=== PATIENT | female | born 1945 | race Caucasian/White ===

== ENCOUNTER 2018-05-09 11:24 | Inpatient (IN) | payer MEDICARE, OTHER ==
[~2018-05-09] VITALS: Ht 165.1 cm; Wt 107.3 kg
[~2018-05-09 11:24] MED LIST: CARI-1 PO; CHOL2000 PO; CITA40TA11 PO; CYAN100087 PO; LOVA20TA2 PO; METO-395 PO; METO50TA7 PO; MONT10TA24 PO; PANT-47 PO; TRAM50TA2 PO
[2018-05-09] MEDS ORDERED: normal saline 1000ML IV soln IVB ONE (11:40)
[2018-05-09] MEDS ORDERED: ondansetron/PF 4mg/2ml inj IV ONE (11:40)
[2018-05-09 11:59] LABS: BASOPHILS % (AUTO) 0.1 % (0-1); EOSINOPHILS # (AUTO) 0.1 X10'3 (0-0.9); EOSINOPHILS % (AUTO) 0.8 % (0-6); HEMATOCRIT 41.9 % (35.0-45.0); HEMOGLOBIN 13.8 g/dl (12.0-16.0); LYMPHOCYTES # (AUTO) 0.6 X10'3 (1.1-4.8); LYMPHOCYTES % (AUTO) 4.3 % (21-51); MEAN CORPUSCULAR HEMOGLOBIN 28.9 PG (27.0-31.0); MEAN CORPUSCULAR HGB CONC 32.9 % (33.0-36.5); MEAN CORPUSCULAR VOLUME 87.9 FL (78-98); MEAN PLATELET VOLUME 9.2 FL (7.4-10.4); MONOCYTES # (AUTO) 0.4 X10'3 (0-0.9); MONOCYTES % (AUTO) 2.9 % (2-12); NEUTROPHILS # (AUTO) 11.9 X10'3 (1.8-7.7); NEUTROPHILS % (AUTO) 91.9 % (42-75); PLATELET COUNT 244 X10'3 (140-440); RED BLOOD COUNT 4.77 X10'6 (4.20-5.60); RED CELL DISTRIBUTION WIDTH 14.5 % (11.5-14.5); WHITE BLOOD COUNT 12.9 X10'3 (4.5-11.0)
[2018-05-09] MEDS: morphine 4 MG/ML inj SYRINge IV PRN ×2 (12:01→13:20)
[2018-05-09 12:14] LABS: ALANINE AMINOTRANSFERASE 27 U/L (12-78); ALBUMIN 3.4 G/DL (3.4-5.0); ALBUMIN/GLOBULIN RATIO 0.9 (1.1-1.5); ALKALINE PHOSPHATASE 98 IU/L (46-116); ANION GAP 10 (8-16); ASPARTATE AMINO TRANSFERASE 23 U/L (10-37); BILIRUBIN,TOTAL 0.5 MG/DL (0.1-1.0); BLOOD UREA NITROGEN 12 MG/DL (7-18); CALCIUM 8.5 MG/DL (8.5-10.1); CHLORIDE 104 MMOL/L (99-107); GLUCOSE 119 MG/DL (70-104); POTASSIUM 3.7 MMOL/L (3.5-5.1); PROTHROMBIN TIME 10.3 SECONDS (9.0-12.0); SODIUM 141 MMOL/L (135-145); TOTAL CARBON DIOXIDE 27.2 MMOL/L (24-32); TOTAL PROTEIN 7.1 G/DL (6.4-8.2); eGFR 71 ML/MIN
[2018-05-09 12:35] LABS: CLARITY,URINE CLEAR (Clear); COLOR,URINE STRAW (Yellow); GLUCOSE, URINE NEGATIVE (Neg); KETONES,URINE NEGATIVE (Neg); LEUKOCYTE ESTERASE ,URINE NEGATIVE (Neg); NITRITES, URINE NEGATIVE (Neg); OCCULT BLOOD,URINE MODERATE (Neg); PROTEIN,URINE NEGATIVE (Neg); UROBILINOGEN,URINE 0.2 E.U/dL (0.2-1.0)
[2018-05-09 12:36] LABS: UA COLLECTION TYPE STRAIGHT CATH
[2018-05-09 12:41] LABS: BACTERIA,URINE FEW /HPF (Neg); HYALINE CASTS 0-3 /LPF (NEGATIVE); SQUAMOUS EPITHELIAL CELL,UR FEW /LPF (FEW)
[2018-05-09 12:42] LABS: WBC,URINE 0-4 /HPF (0-4)
[2018-05-09 12:57] LABS: TOTAL CELLS COUNTED 100
[2018-05-09 12:58] LABS: PLATELET ESTIMATE NORMAL
[2018-05-09] MEDS ORDERED: POTA20TA19 PO (13:16)
[2018-05-09] MEDS ORDERED: SYN0.088T PO (13:23)
[2018-05-09] MEDS ORDERED: VIT1CAPS46 PO (13:23)
[2018-05-09] MEDS ORDERED: HYDROmorphone 1 mg/ml syringe IV PRN ×2 (15:05)
[2018-05-09] MEDS ORDERED: potassium Cl 40MEQ/NS 500ml 500 ML IV PRN ×2 (15:05)
[2018-05-09] MEDS ORDERED: magnesium hydroxide 30ml (MOM) UD suspension PO PRN (15:05)
[2018-05-09] MEDS ORDERED: potassium Cl 20 mEq SR tablet PO PRN ×2 (15:05)
[2018-05-09] MEDS ORDERED: mag hydrox/Alum hydrox/simeth 30ml oral suspension PO PRN (15:05)
[2018-05-09] MEDS ORDERED: morphine 2 MG/ML inj. syringe IV PRN (15:05)
[2018-05-09] MEDS ORDERED: magnesium 1gm/100ml D5W IVPB 100 ML IV PRN (15:05)
[2018-05-09] MEDS: K and/or MAG REPLACEMENT MC SCH (15:05)
[2018-05-09] MEDS ORDERED: diphenhydrAMINE 25mg capsule PO PRN (15:05)
[2018-05-09] MEDS ORDERED: diphenhydrAMINE 50 mg/ml inj IV PRN (15:05)
[2018-05-09] MEDS ORDERED: magnesium 4gm in 100ml NS 100 ML IV PRN (15:05)
[2018-05-09] MEDS ORDERED: magnesium Cl slow-release 64mg tablet PO PRN (15:05)
[2018-05-09] MEDS ORDERED: metroNIDAZOLE-Flagyl 500mg/NS 100 ML IV STA (15:11)
[2018-05-09] MEDS ORDERED: levoFLOXACIN-Levaquin 750MG/D5 150 ML IV STA (15:11)
[2018-05-09] MEDS: pantoprazole 40 MG vial IV SCH (15:51)
[2018-05-09] MEDS: metroNIDAZOLE-Flagyl 500mg/NS 100 ML IV SCH ×2 (16:00→23:23)
[2018-05-09 16:30] VITALS: BP 95/55
[2018-05-09] MEDS: dextrose 5%-normal saline 1,000 ML IV SCH ×2 (16:35→23:29)
[2018-05-09] MEDS: metoprolol succinate 25mg (24-HOUR) SR. Tablet PO SCH (19:37)
[2018-05-09 20:05] VITALS: BP 94/54
[2018-05-10] VITALS (18 sets, daily range): BP systolic 80–133; BP diastolic 39–68
[2018-05-10] MEDS: ondansetron/PF 4mg/2ml inj IV PRN (00:33)
[2018-05-10] MEDS: morphine 2 MG/ML inj. syringe IV PRN ×2 (04:16→08:18)
[2018-05-10 05:37] LABS: BASOPHILS % (AUTO) 0.2 % (0-1); EOSINOPHILS # (AUTO) 0.1 X10'3 (0-0.9); EOSINOPHILS % (AUTO) 0.5 % (0-6); HEMATOCRIT 35.9 % (35.0-45.0); HEMOGLOBIN 11.8 g/dl (12.0-16.0); LYMPHOCYTES # (AUTO) 1.1 X10'3 (1.1-4.8); LYMPHOCYTES % (AUTO) 7.5 % (21-51); MEAN CORPUSCULAR HEMOGLOBIN 29.1 PG (27.0-31.0); MEAN CORPUSCULAR HGB CONC 32.9 % (33.0-36.5); MEAN CORPUSCULAR VOLUME 88.3 FL (78-98); MEAN PLATELET VOLUME 9.7 FL (7.4-10.4); MONOCYTES # (AUTO) 0.9 X10'3 (0-0.9); MONOCYTES % (AUTO) 5.8 % (2-12); PLATELET COUNT 186 X10'3 (140-440); RED BLOOD COUNT 4.07 X10'6 (4.20-5.60); RED CELL DISTRIBUTION WIDTH 14.7 % (11.5-14.5); WHITE BLOOD COUNT 15.1 X10'3 (4.5-11.0)
[2018-05-10 05:55] LABS: ALANINE AMINOTRANSFERASE 19 U/L (12-78); ALBUMIN 2.6 G/DL (3.4-5.0); ALBUMIN/GLOBULIN RATIO 0.7 (1.1-1.5); ALKALINE PHOSPHATASE 73 IU/L (46-116); ANION GAP 9 (8-16); ASPARTATE AMINO TRANSFERASE 15 U/L (10-37); BILIRUBIN,TOTAL 0.5 MG/DL (0.1-1.0); BLOOD UREA NITROGEN 10 MG/DL (7-18); BUN/CREATININE RATIO 12.2 (6.6-38.0); CHLORIDE 107 MMOL/L (99-107); CREATININE 0.82 MG/DL (0.40-0.90); GLUCOSE 130 MG/DL (70-104); MAGNESIUM 1.5 MG/DL (1.5-2.4); PHOSPHORUS 2.9 MG/DL (2.3-4.5); POTASSIUM 3.6 MMOL/L (3.5-5.1); SODIUM 141 MMOL/L (135-145); TOTAL CARBON DIOXIDE 25.2 MMOL/L (24-32); TOTAL PROTEIN 6.1 G/DL (6.4-8.2); eGFR 69 ML/MIN
[2018-05-10] MEDS: dextrose 5%-normal saline 1,000 ML IV SCH (07:05)
[2018-05-10] MEDS: K and/or MAG REPLACEMENT MC SCH (07:38)
[2018-05-10] MEDS: metoprolol succinate 25mg (24-HOUR) SR. Tablet PO SCH (07:41)
[2018-05-10] MEDS: pantoprazole 40 MG vial IV SCH (07:44)
[2018-05-10] MEDS: metroNIDAZOLE-Flagyl 500mg/NS 100 ML IV SCH ×3 (07:48→23:09)
[2018-05-10] MEDS: levoFLOXACIN-Levaquin 750MG/D5 150 ML IV SCH (09:16)
[2018-05-10] MEDS ORDERED: epiNEPHrine 1 mg/ml inj ONE (11:12)
[2018-05-10] MEDS ORDERED: BUPIVAcaine/PF 2.5mg/ml (0.25%) 10ml vial ONE (11:12)
[2018-05-10] MEDS ORDERED: ceFAZolin 1000mg inj ONE (11:12)
[2018-05-10] MEDS ORDERED: propofol 1000mg/100ml bottle 100 ML IV ONE ×2 (12:23)
[2018-05-10] MEDS ORDERED: fentaNYL /PF 50mcg/ml 5ml ampule ONE (12:25)
[2018-05-10] MEDS ORDERED: morphine 10mg/ml inj. ONE (13:26)
[2018-05-10] MEDS ORDERED: FENTANYL-0.9 % NACL/PF 100 ML IV PRN ×2 (14:19→16:23)
[2018-05-10] MEDS ORDERED: fentaNYL/PF 50MCG/1 ML 2ML syringe ONE (15:02)
[2018-05-10 15:26] LABS: ABG BASE EXCESS -5.5 mmol/L (-2.0-3.0); ABG HCO3 21.6 mmol/L (22.0-26.0); ABG OXYGEN SATURATION 95.3 % (95-98); ABG PCO2 (T) 47.6 mmHg (32.0-45.0); ABG PH (T) 7.272 (7.350-7.450); ABG PO2 (T) 79.7 mmHg (83-108); FCOHb 0.2 % (0.5-1.5); FMetHb 0.2 % (0.3-1.12); FO2Hb 94.9 % (94-100); MINUTE VOLUME 9 L/min; PATIENT TEMPERATURE 36.5; PEEP 5 cm H2O; RESPIRATORY RATE 12 b/min; RESPIRATORY RATE (OBSERVED) 17 b/min; TIDAL VOLUME 600 mL; TOTAL HEMOGLOBIN 12.1 G/dl (12.0-16.0)
[2018-05-10] MEDS ORDERED: hydrALAZINE 20mg/ml inj. IV ONE (15:26)
[2018-05-10] MEDS ORDERED: propofol inj 20 ML IV ONE (15:26)
[2018-05-10] MEDS ORDERED: rocuronium 10mg/ml inj IV ONE (15:26)
[2018-05-10] MEDS ORDERED: furosemide 40mg/4ml inj ONE (15:26)
[2018-05-10] MEDS ORDERED: LIDOcaine 2% (20mg/ml) 5ml vial ONE (15:26)
[2018-05-10] MEDS ORDERED: propofol 1000mg/100ml bottle 100 ML IV PRN (15:47)
[2018-05-10] MEDS ORDERED: midazolam 100mg in NS 100ml 100 ML IV PRN (16:23)
[2018-05-10] MEDS ORDERED: fentaNYL/PF 50MCG/1 ML 2ML syringe IV PRN (16:25)
[2018-05-10] MEDS ORDERED: midazolam 2 mg/2 ml injection IV ONE (16:25)
[2018-05-10] MEDS ORDERED: ondansetron/PF 4mg/2ml inj IV PRN (16:40)
[2018-05-10] MEDS ORDERED: NORepinephrine 8mg/ 250ml NS 250 ML IV SCH (17:40)
[2018-05-10] MEDS: acetaminophen 650mg rectal suppository RC PRN (20:48)
[2018-05-10] MEDS: potassium CL 20mEq in D5-1/2NS 1,000 ML IV SCH (20:48)
[2018-05-10] MEDS: propofol 1000mg/100ml bottle 100 ML IV PRN (22:38)
[2018-05-11] VITALS (23 sets, daily range): BP systolic 83–159; BP diastolic 48–93
[2018-05-11] MEDS: potassium CL 20mEq in D5-1/2NS 1,000 ML IV SCH ×4 (00:37→20:34)
[2018-05-11 02:54] LABS: BASOPHILS % (AUTO) 0.1 % (0-1); EOSINOPHILS % (AUTO) 0.1 % (0-6); HEMATOCRIT 31.5 % (35.0-45.0); HEMOGLOBIN 10.2 g/dl (12.0-16.0); LYMPHOCYTES # (AUTO) 0.8 X10'3 (1.1-4.8); LYMPHOCYTES % (AUTO) 7.9 % (21-51); MEAN CORPUSCULAR HEMOGLOBIN 28.9 PG (27.0-31.0); MEAN CORPUSCULAR HGB CONC 32.4 % (33.0-36.5); MEAN PLATELET VOLUME 9.8 FL (7.4-10.4); MONOCYTES # (AUTO) 0.6 X10'3 (0-0.9); MONOCYTES % (AUTO) 6.2 % (2-12); NEUTROPHILS # (AUTO) 8.3 X10'3 (1.8-7.7); NEUTROPHILS % (AUTO) 85.7 % (42-75); PLATELET COUNT 186 X10'3 (140-440); RED BLOOD COUNT 3.54 X10'6 (4.20-5.60); RED CELL DISTRIBUTION WIDTH 15.3 % (11.5-14.5); WHITE BLOOD COUNT 9.7 X10'3 (4.5-11.0)
[2018-05-11 03:02] LABS: CHLORIDE 106 MMOL/L (99-107); GLUCOSE 158 MG/DL (70-104); POTASSIUM 3.7 MMOL/L (3.5-5.1); SODIUM 141 MMOL/L (135-145); TOTAL CARBON DIOXIDE 25.4 MMOL/L (24-32)
[2018-05-11 03:03] LABS: ALANINE AMINOTRANSFERASE 16 U/L (12-78); ALBUMIN 1.9 G/DL (3.4-5.0); ALBUMIN/GLOBULIN RATIO 0.6 (1.1-1.5); ALKALINE PHOSPHATASE 62 IU/L (46-116); ANION GAP 10 (8-16); ASPARTATE AMINO TRANSFERASE 19 U/L (10-37); BILIRUBIN,TOTAL 0.7 MG/DL (0.1-1.0); BLOOD UREA NITROGEN 7 MG/DL (7-18); BUN/CREATININE RATIO 10.6 (6.6-38.0); CALCIUM 7.1 MG/DL (8.5-10.1); CREATININE 0.66 MG/DL (0.40-0.90); MAGNESIUM 1.2 MG/DL (1.5-2.4); PHOSPHORUS 3.1 MG/DL (2.3-4.5); TOTAL PROTEIN 5.3 G/DL (6.4-8.2); eGFR 88 ML/MIN
[2018-05-11 04:00] LABS: ABG BASE EXCESS -1.2 mmol/L (-2.0-3.0); ABG HCO3 23.8 mmol/L (22.0-26.0); ABG OXYGEN SATURATION 94.8 % (95-98); ABG PCO2 (T) 41.7 mmHg (32.0-45.0); ABG PH (T) 7.376 (7.350-7.450); ABG PO2 (T) 73.9 mmHg (83-108); FCOHb 0.3 % (0.5-1.5); FMetHb 0.1 % (0.3-1.12); FO2Hb 94.4 % (94-100); MINUTE VOLUME 7 L/min; PATIENT TEMPERATURE 37.4; PEEP 5 cm H2O; RESPIRATORY RATE 12 b/min; RESPIRATORY RATE (OBSERVED) 14 b/min; TIDAL VOLUME 500 mL
[2018-05-11] MEDS: propofol 1000mg/100ml bottle 100 ML IV PRN (05:53)
[2018-05-11] MEDS: K and/or MAG REPLACEMENT MC SCH (07:02)
[2018-05-11] MEDS: metroNIDAZOLE-Flagyl 500mg/NS 100 ML IV SCH ×2 (07:17→16:20)
[2018-05-11] MEDS: pantoprazole 40 MG vial IV SCH (07:17)
[2018-05-11] MEDS: levoFLOXACIN-Levaquin 750MG/D5 150 ML IV SCH (07:17)
[2018-05-11] MEDS ORDERED: HYDROmorphone/NS 1 mg/ml CADD 50 ML IV PRN (09:15)
[2018-05-11] MEDS: HYDROmorphone/NS 1 mg/ml CADD 50 ML IV SCH ×6 (09:30→23:00)
[2018-05-11] MEDS: ondansetron/PF 4mg/2ml inj IV PRN ×4 (10:52→20:35)
[2018-05-11] MEDS ORDERED: mineral oil/petrolatum ophthal oint EACHEYE SCH ×2 (20:00)
[2018-05-11] MEDS: mineral oil/petrolatum ophthal oint EACHEYE SCH (20:00)
[2018-05-11] MEDS: heparin, porcine 5000 units/ml vial SQ SCH (22:41)
[2018-05-12] VITALS (24 sets, daily range): BP systolic 77–164; BP diastolic 46–79
[2018-05-12] MEDS: metroNIDAZOLE-Flagyl 500mg/NS 100 ML IV SCH ×3 (00:49→15:46)
[2018-05-12] MEDS: HYDROmorphone/NS 1 mg/ml CADD 50 ML IV SCH ×11 (01:00→23:00)
[2018-05-12] MEDS: mineral oil/petrolatum ophthal oint EACHEYE SCH ×4 (02:00→19:15)
[2018-05-12] MEDS: ondansetron/PF 4mg/2ml inj IV PRN ×4 (02:14→19:06)
[2018-05-12 03:18] LABS: BASOPHILS % (AUTO) 0.1 % (0-1); EOSINOPHILS # (AUTO) 0.1 X10'3 (0-0.9); EOSINOPHILS % (AUTO) 1.3 % (0-6); HEMATOCRIT 28.9 % (35.0-45.0); HEMOGLOBIN 9.5 g/dl (12.0-16.0); LYMPHOCYTES # (AUTO) 0.9 X10'3 (1.1-4.8); LYMPHOCYTES % (AUTO) 8.1 % (21-51); MEAN CORPUSCULAR HEMOGLOBIN 29.4 PG (27.0-31.0); MEAN CORPUSCULAR HGB CONC 32.9 % (33.0-36.5); MEAN CORPUSCULAR VOLUME 89.2 FL (78-98); MEAN PLATELET VOLUME 9.7 FL (7.4-10.4); MONOCYTES # (AUTO) 1.1 X10'3 (0-0.9); MONOCYTES % (AUTO) 9.6 % (2-12); NEUTROPHILS # (AUTO) 9.1 X10'3 (1.8-7.7); NEUTROPHILS % (AUTO) 80.9 % (42-75); PLATELET COUNT 199 X10'3 (140-440); RED BLOOD COUNT 3.24 X10'6 (4.20-5.60); RED CELL DISTRIBUTION WIDTH 15.1 % (11.5-14.5); WHITE BLOOD COUNT 11.3 X10'3 (4.5-11.0)
[2018-05-12 03:46] LABS: ALANINE AMINOTRANSFERASE 22 U/L (12-78); ALBUMIN/GLOBULIN RATIO 0.6 (1.1-1.5); ALKALINE PHOSPHATASE 66 IU/L (46-116); ANION GAP 3 (8-16); ASPARTATE AMINO TRANSFERASE 31 U/L (10-37); BILIRUBIN,TOTAL 0.5 MG/DL (0.1-1.0); BLOOD UREA NITROGEN 7 MG/DL (7-18); BUN/CREATININE RATIO 12.1 (6.6-38.0); CALCIUM 7.9 MG/DL (8.5-10.1); CHLORIDE 106 MMOL/L (99-107); CREATININE 0.58 MG/DL (0.40-0.90); GLUCOSE 147 MG/DL (70-104); MAGNESIUM 1.7 MG/DL (1.5-2.4); PHOSPHORUS 2.6 MG/DL (2.3-4.5); POTASSIUM 4.2 MMOL/L (3.5-5.1); SODIUM 140 MMOL/L (135-145); TOTAL CARBON DIOXIDE 31.3 MMOL/L (24-32); TOTAL PROTEIN 5.4 G/DL (6.4-8.2); eGFR > 90 ML/MIN
[2018-05-12] MEDS: potassium CL 20mEq in D5-1/2NS 1,000 ML IV SCH ×3 (05:17→22:00)
[2018-05-12] MEDS: metoclopramide 5 mg/ml inj IV PRN (05:25)
[2018-05-12] MEDS: pantoprazole 40 MG vial IV SCH (08:13)
[2018-05-12] MEDS: levoFLOXACIN-Levaquin 750MG/D5 150 ML IV SCH (08:14)
[2018-05-12] MEDS: heparin, porcine 5000 units/ml vial SQ SCH ×2 (08:14→19:16)
[2018-05-12] MEDS: K and/or MAG REPLACEMENT MC SCH (08:15)
[2018-05-12] MEDS ORDERED: fat emulsion IV 181.82 ML, MVI, adult No.4 with vit. K 4.55 ML, Trace element-5 inj. 0.... IV SCH ×4 (11:12)
[2018-05-12] MEDS ORDERED: sodium phosphate inj. 15 MMOL in dextrose 5%-water 150 ML IV PRN (13:35)
[2018-05-12] MEDS ORDERED: sodium phosphate inj. 30 MMOL in dextrose 5%-water 250 ML IV PRN (13:35)
[2018-05-12] MEDS ORDERED: albuterol 2.5 MG/3 ML nebule ONE (20:18)
[2018-05-12] MEDS: albuterol 2.5 MG/3 ML nebule NEB PRN (20:20)
[2018-05-12] MEDS ORDERED: Dextrose 10%-water IV solution 1,000 ML IV PRN (21:00)
[2018-05-12] MEDS: fat emulsion IV 100 ML, MVI, adult No.4 with vit. K 10 ML, Trace element-5 inj. 1 ML in... IV SCH ×4 (22:02)
[2018-05-13] VITALS (24 sets, daily range): BP systolic 105–158; BP diastolic 47–78
[2018-05-13] MEDS ORDERED: Dextrose 10%-water IV solution 1,000 ML IV PRN (00:21)
[2018-05-13] MEDS ORDERED: magnesium 1gm/100ml D5W IVPB 100 ML IV PRN (00:25)
[2018-05-13] MEDS: metroNIDAZOLE-Flagyl 500mg/NS 100 ML IV SCH ×4 (00:25→23:38)
[2018-05-13] MEDS ORDERED: magnesium 4gm in 100ml NS 100 ML IV PRN (00:25)
[2018-05-13] MEDS: albuterol 2.5 MG/3 ML nebule NEB PRN ×3 (00:42→13:09)
[2018-05-13] MEDS: HYDROmorphone/NS 1 mg/ml CADD 50 ML IV SCH ×5 (01:00→09:00)
[2018-05-13] MEDS: mineral oil/petrolatum ophthal oint EACHEYE SCH ×4 (01:11→19:43)
[2018-05-13] MEDS: metoclopramide 5 mg/ml inj IV PRN (04:39)
[2018-05-13] MEDS: K and/or MAG REPLACEMENT MC SCH (08:00)
[2018-05-13 08:08] LABS: BASOPHILS % (AUTO) 0.1 % (0-1); EOSINOPHILS # (AUTO) 0.1 X10'3 (0-0.9); EOSINOPHILS % (AUTO) 1.3 % (0-6); HEMATOCRIT 27.5 % (35.0-45.0); HEMOGLOBIN 8.9 g/dl (12.0-16.0); LYMPHOCYTES # (AUTO) 0.6 X10'3 (1.1-4.8); MEAN CORPUSCULAR HEMOGLOBIN 28.8 PG (27.0-31.0); MEAN CORPUSCULAR HGB CONC 32.3 % (33.0-36.5); MEAN CORPUSCULAR VOLUME 89.3 FL (78-98); MEAN PLATELET VOLUME 8.3 FL (7.4-10.4); MONOCYTES # (AUTO) 0.9 X10'3 (0-0.9); MONOCYTES % (AUTO) 10.7 % (2-12); NEUTROPHILS # (AUTO) 6.6 X10'3 (1.8-7.7); NEUTROPHILS % (AUTO) 80.9 % (42-75); PLATELET COUNT 233 X10'3 (140-440); RED BLOOD COUNT 3.08 X10'6 (4.20-5.60); WHITE BLOOD COUNT 8.2 X10'3 (4.5-11.0)
[2018-05-13] MEDS: pantoprazole 40 MG vial IV SCH (08:13)
[2018-05-13] MEDS: levoFLOXACIN-Levaquin 750MG/D5 150 ML IV SCH (08:15)
[2018-05-13] MEDS: heparin, porcine 5000 units/ml vial SQ SCH ×2 (08:15→20:14)
[2018-05-13 08:23] LABS: ALANINE AMINOTRANSFERASE 17 U/L (12-78); ALBUMIN 1.9 G/DL (3.4-5.0); ALBUMIN/GLOBULIN RATIO 0.6 (1.1-1.5); ALKALINE PHOSPHATASE 63 IU/L (46-116); ANION GAP 2 (8-16); ASPARTATE AMINO TRANSFERASE 21 U/L (10-37); BILIRUBIN,TOTAL 0.4 MG/DL (0.1-1.0); BLOOD UREA NITROGEN 6 MG/DL (7-18); BUN/CREATININE RATIO 10.7 (6.6-38.0); CHLORIDE 104 MMOL/L (99-107); CREATININE 0.56 MG/DL (0.40-0.90); GLUCOSE 149 MG/DL (70-104); MAGNESIUM 1.9 MG/DL (1.5-2.4); PHOSPHORUS 2.4 MG/DL (2.3-4.5); POTASSIUM 3.8 MMOL/L (3.5-5.1); PREALBUMIN 8.3 MG/DL (19-36); SODIUM 139 MMOL/L (135-145); TOTAL CARBON DIOXIDE 33.1 MMOL/L (24-32); TOTAL PROTEIN 5.3 G/DL (6.4-8.2); TRIGLYCERIDES 70 MG/DL (20-135); eGFR > 90 ML/MIN
[2018-05-13] MEDS: potassium CL 20mEq in D5-1/2NS 1,000 ML IV SCH (08:39)
[2018-05-13] MEDS ORDERED: epoetin 20,000 units/ml inj SQ ONE (11:00)
[2018-05-13] MEDS: methylnaltrexone br 12mg/0.6ml inj***SubQ only SQ SCH (12:07)
[2018-05-13] MEDS: morphine/NS 5 mg/ml CADD 50 ML IV SCH ×7 (12:47→23:00)
[2018-05-13] MEDS: furosemide 40mg/4ml inj IV SCH ×2 (16:43→23:38)
[2018-05-13] MEDS: acetaminophen 650mg rectal suppository RC PRN (17:41)
[2018-05-13] MEDS ORDERED: potassium Cl 40MEQ/NS 500ml 500 ML IV PRN ×2 (23:35)
[2018-05-14] VITALS (25 sets, daily range): BP systolic 108–161; BP diastolic 57–92
[2018-05-14] MEDS: morphine/NS 5 mg/ml CADD 50 ML IV SCH ×12 (01:00→23:00)
[2018-05-14] MEDS: mineral oil/petrolatum ophthal oint EACHEYE SCH ×3 (01:10→13:29)
[2018-05-14] MEDS: fat emulsion IV 100 ML, MVI, adult No.4 with vit. K 10 ML, Trace element-5 inj. 1 ML in... IV SCH ×8 (01:20→17:00)
[2018-05-14] MEDS ORDERED: acetaminophen 325mg tablet PO PRN (01:40)
[2018-05-14 07:04] LABS: BASOPHILS % (AUTO) 0 % (0-1); EOSINOPHILS # (AUTO) 0.3 X10'3 (0-0.9); EOSINOPHILS % (AUTO) 3.8 % (0-6); HEMATOCRIT 27.6 % (35.0-45.0); LYMPHOCYTES # (AUTO) 0.8 X10'3 (1.1-4.8); LYMPHOCYTES % (AUTO) 9.6 % (21-51); MEAN CORPUSCULAR HEMOGLOBIN 28.8 PG (27.0-31.0); MEAN CORPUSCULAR HGB CONC 32.7 % (33.0-36.5); MEAN CORPUSCULAR VOLUME 88.3 FL (78-98); MEAN PLATELET VOLUME 8.6 FL (7.4-10.4); MONOCYTES # (AUTO) 1.3 X10'3 (0-0.9); MONOCYTES % (AUTO) 16.1 % (2-12); NEUTROPHILS # (AUTO) 5.6 X10'3 (1.8-7.7); NEUTROPHILS % (AUTO) 70.5 % (42-75); PLATELET COUNT 259 X10'3 (140-440); RED BLOOD COUNT 3.13 X10'6 (4.20-5.60); RED CELL DISTRIBUTION WIDTH 14.9 % (11.5-14.5)
[2018-05-14 07:25] LABS: ALANINE AMINOTRANSFERASE 17 U/L (12-78); ALBUMIN 1.9 G/DL (3.4-5.0); ALBUMIN/GLOBULIN RATIO 0.5 (1.1-1.5); ALKALINE PHOSPHATASE 60 IU/L (46-116); ANION GAP 2 (8-16); ASPARTATE AMINO TRANSFERASE 19 U/L (10-37); BILIRUBIN,TOTAL 0.5 MG/DL (0.1-1.0); BLOOD UREA NITROGEN 14 MG/DL (7-18); BUN/CREATININE RATIO 24.1 (6.6-38.0); CALCIUM 8.2 MG/DL (8.5-10.1); CHLORIDE 100 MMOL/L (99-107); CREATININE 0.58 MG/DL (0.40-0.90); GLUCOSE 122 MG/DL (70-104); MAGNESIUM 1.8 MG/DL (1.5-2.4); POTASSIUM 3.8 MMOL/L (3.5-5.1); SODIUM 139 MMOL/L (135-145); TOTAL CARBON DIOXIDE 36.8 MMOL/L (24-32); TOTAL PROTEIN 5.6 G/DL (6.4-8.2); eGFR > 90 ML/MIN
[2018-05-14] MEDS: levoFLOXACIN-Levaquin 750MG/D5 150 ML IV SCH (08:04)
[2018-05-14] MEDS: metroNIDAZOLE-Flagyl 500mg/NS 100 ML IV SCH ×2 (08:04→16:59)
[2018-05-14] MEDS: heparin, porcine 5000 units/ml vial SQ SCH ×2 (08:04→20:58)
[2018-05-14] MEDS: furosemide 40mg/4ml inj IV SCH (08:05)
[2018-05-14] MEDS: pantoprazole 40 MG vial IV SCH (08:05)
[2018-05-14] MEDS: K and/or MAG REPLACEMENT MC SCH (08:36)
[2018-05-14] MEDS: normal saline 1000ml 1,000 ML IV SCH (10:28)
[2018-05-14] MEDS: metoclopramide 5 mg/ml inj IV PRN (10:38)
[2018-05-14] MEDS: aspirin/acetaminophen/caffeine tablet PO SCH ×2 (13:26→20:00)
[2018-05-14] MEDS: metoclopramide 5 mg/ml inj IV SCH ×2 (14:00→20:58)
[2018-05-14] MEDS: ondansetron/PF 4mg/2ml inj IV PRN (18:48)
[2018-05-15] VITALS (19 sets, daily range): BP systolic 96–151; BP diastolic 59–99
[2018-05-15] MEDS: metroNIDAZOLE-Flagyl 500mg/NS 100 ML IV SCH ×3 (00:20→16:29)
[2018-05-15] MEDS: morphine/NS 5 mg/ml CADD 50 ML IV SCH ×12 (01:00→23:00)
[2018-05-15] MEDS: ondansetron/PF 4mg/2ml inj IV PRN ×2 (02:39→13:59)
[2018-05-15] MEDS: metoclopramide 5 mg/ml inj IV SCH ×4 (02:39→20:15)
[2018-05-15 07:30] LABS: BASOPHILS % (AUTO) 0.2 % (0-1); EOSINOPHILS # (AUTO) 0.3 X10'3 (0-0.9); HEMATOCRIT 30.1 % (35.0-45.0); HEMOGLOBIN 9.9 g/dl (12.0-16.0); LYMPHOCYTES # (AUTO) 0.9 X10'3 (1.1-4.8); LYMPHOCYTES % (AUTO) 9.3 % (21-51); MEAN CORPUSCULAR HGB CONC 32.9 % (33.0-36.5); MEAN CORPUSCULAR VOLUME 88.1 FL (78-98); MEAN PLATELET VOLUME 7.5 FL (7.4-10.4); MONOCYTES % (AUTO) 11.4 % (2-12); NEUTROPHILS % (AUTO) 76.1 % (42-75); PLATELET COUNT 328 X10'3 (140-440); RED BLOOD COUNT 3.42 X10'6 (4.20-5.60); RED CELL DISTRIBUTION WIDTH 15.2 % (11.5-14.5); WHITE BLOOD COUNT 9.2 X10'3 (4.5-11.0)
[2018-05-15 07:57] LABS: ALANINE AMINOTRANSFERASE 19 U/L (12-78); ALBUMIN 2.1 G/DL (3.4-5.0); ALBUMIN/GLOBULIN RATIO 0.5 (1.1-1.5); ALKALINE PHOSPHATASE 70 IU/L (46-116); ANION GAP 2 (8-16); ASPARTATE AMINO TRANSFERASE 20 U/L (10-37); BILIRUBIN,TOTAL 0.6 MG/DL (0.1-1.0); BLOOD UREA NITROGEN 19 MG/DL (7-18); BUN/CREATININE RATIO 34.5 (6.6-38.0); CALCIUM 8.4 MG/DL (8.5-10.1); CHLORIDE 100 MMOL/L (99-107); CREATININE 0.55 MG/DL (0.40-0.90); GLUCOSE 134 MG/DL (70-104); POTASSIUM 3.7 MMOL/L (3.5-5.1); SODIUM 137 MMOL/L (135-145); TOTAL CARBON DIOXIDE 34.6 MMOL/L (24-32); eGFR > 90 ML/MIN
[2018-05-15] MEDS: K and/or MAG REPLACEMENT MC SCH (08:00)
[2018-05-15] MEDS ORDERED: levoTHYROXINE sod inj. 100mcg/5 ml vial IV SCH (08:00)
[2018-05-15 08:02] LABS: PREALBUMIN 13.3 MG/DL (19-36)
[2018-05-15] MEDS: aspirin/acetaminophen/caffeine tablet PO SCH ×2 (08:02→21:53)
[2018-05-15] MEDS: methylnaltrexone br 12mg/0.6ml inj***SubQ only SQ SCH (08:02)
[2018-05-15] MEDS: pantoprazole 40 MG vial IV SCH (08:03)
[2018-05-15] MEDS: heparin, porcine 5000 units/ml vial SQ SCH ×2 (08:04→20:15)
[2018-05-15] MEDS: levoFLOXACIN-Levaquin 750MG/D5 150 ML IV SCH (08:11)
[2018-05-15] MEDS: fat emulsion IV 100 ML, MVI, adult No.4 with vit. K 10 ML, Trace element-5 inj. 1 ML in... IV SCH ×4 (11:40)
[2018-05-15] MEDS: MAGNESIUM IV SCH ×13 (15:48)
[2018-05-15] MEDS: SODIUM IV SCH ×13 (15:48)
[2018-05-15] MEDS: CALCIUM GLUCONATE IV SCH ×13 (15:48)
[2018-05-15] MEDS: [UNRECOGNIZED DRUG - OTHER] IV SCH ×13 (15:48)
[2018-05-15] MEDS: POTASSIUM IV SCH ×13 (15:48)
[2018-05-16] MEDS: morphine/NS 5 mg/ml CADD 50 ML IV SCH ×12 (01:00→23:00)
[2018-05-16] MEDS: POTASSIUM IV SCH ×13 (02:22)
[2018-05-16] MEDS: MAGNESIUM IV SCH ×13 (02:22)
[2018-05-16] MEDS: SODIUM IV SCH ×13 (02:22)
[2018-05-16] MEDS: metoclopramide 5 mg/ml inj IV SCH ×4 (02:22→20:58)
[2018-05-16] MEDS: CALCIUM GLUCONATE IV SCH ×13 (02:22)
[2018-05-16] MEDS: [UNRECOGNIZED DRUG - OTHER] IV SCH ×13 (02:22)
[2018-05-16 03:02] VITALS: BP 136/77
[2018-05-16 06:00] VITALS: BP 130/73
[2018-05-16 07:55] LABS: BASOPHILS % (AUTO) 0.3 % (0-1); EOSINOPHILS # (AUTO) 0.4 X10'3 (0-0.9); EOSINOPHILS % (AUTO) 3.6 % (0-6); HEMATOCRIT 32.2 % (35.0-45.0); HEMOGLOBIN 10.5 g/dl (12.0-16.0); LYMPHOCYTES # (AUTO) 1.4 X10'3 (1.1-4.8); LYMPHOCYTES % (AUTO) 11.3 % (21-51); MEAN CORPUSCULAR HEMOGLOBIN 28.9 PG (27.0-31.0); MEAN CORPUSCULAR HGB CONC 32.7 % (33.0-36.5); MEAN CORPUSCULAR VOLUME 88.6 FL (78-98); MEAN PLATELET VOLUME 7.5 FL (7.4-10.4); MONOCYTES # (AUTO) 1.9 X10'3 (0-0.9); MONOCYTES % (AUTO) 15.6 % (2-12); NEUTROPHILS # (AUTO) 8.4 X10'3 (1.8-7.7); NEUTROPHILS % (AUTO) 69.2 % (42-75); PLATELET COUNT 460 X10'3 (140-440); RED BLOOD COUNT 3.64 X10'6 (4.20-5.60); RED CELL DISTRIBUTION WIDTH 15.5 % (11.5-14.5); WHITE BLOOD COUNT 12.2 X10'3 (4.5-11.0)
[2018-05-16] MEDS: K and/or MAG REPLACEMENT MC SCH (08:00)
[2018-05-16 08:07] LABS: LARGE PLATELETS FEW; PLATELET ESTIMATE NORMAL
[2018-05-16] MEDS: aspirin/acetaminophen/caffeine tablet PO SCH ×2 (08:08→20:58)
[2018-05-16] MEDS: heparin, porcine 5000 units/ml vial SQ SCH ×2 (08:08→20:59)
[2018-05-16] MEDS: pantoprazole 40 MG vial IV SCH (08:08)
[2018-05-16 08:18] LABS: ALANINE AMINOTRANSFERASE 23 U/L (12-78); ALBUMIN 2.5 G/DL (3.4-5.0); ALBUMIN/GLOBULIN RATIO 0.6 (1.1-1.5); ALKALINE PHOSPHATASE 95 IU/L (46-116); ANION GAP 5 (8-16); ASPARTATE AMINO TRANSFERASE 26 U/L (10-37); BILIRUBIN,TOTAL 0.6 MG/DL (0.1-1.0); BLOOD UREA NITROGEN 16 MG/DL (7-18); BUN/CREATININE RATIO 25.8 (6.6-38.0); CALCIUM 8.8 MG/DL (8.5-10.1); CHLORIDE 99 MMOL/L (99-107); CREATININE 0.62 MG/DL (0.40-0.90); GLUCOSE 110 MG/DL (70-104); MAGNESIUM 2.2 MG/DL (1.5-2.4); POTASSIUM 4.1 MMOL/L (3.5-5.1); SODIUM 136 MMOL/L (135-145); TOTAL CARBON DIOXIDE 31.6 MMOL/L (24-32); eGFR > 90 ML/MIN
[2018-05-16] MEDS: metroNIDAZOLE-Flagyl 500mg/NS 100 ML IV SCH ×4 (08:28→23:46)
[2018-05-16] MEDS: normal saline 1000ml 1,000 ML IV SCH ×2 (09:30→15:11)
[2018-05-16] MEDS: levoFLOXACIN-Levaquin 750MG/D5 150 ML IV SCH (09:35)
[2018-05-16] MEDS: levoTHYROXINE 25mcg tablet PO SCH (09:36)
[2018-05-16] MEDS ORDERED: LORazepam 1 MG tablet PO PRN (10:00)
[2018-05-16 11:00] VITALS: BP 112/79
[2018-05-16] MEDS: citalopram 20mg tablet PO SCH (11:16)
[2018-05-16] MEDS: cefepime 2g/NS 100ml ADVANTAGE 100 ML IV SCH (11:16)
[2018-05-16 15:00] VITALS: BP 117/60
[2018-05-16 19:00] VITALS: BP 147/63
[2018-05-16 23:00] VITALS: BP 127/75
[2018-05-17] MEDS: morphine/NS 5 mg/ml CADD 50 ML IV SCH ×12 (00:47→23:00)
[2018-05-17] MEDS: metoclopramide 5 mg/ml inj IV SCH ×4 (01:37→22:34)
[2018-05-17 03:00] VITALS: BP 120/70
[2018-05-17] MEDS: MAGNESIUM IV SCH ×13 (03:25)
[2018-05-17] MEDS: CALCIUM GLUCONATE IV SCH ×13 (03:25)
[2018-05-17] MEDS: POTASSIUM IV SCH ×13 (03:25)
[2018-05-17] MEDS: SODIUM IV SCH ×13 (03:25)
[2018-05-17] MEDS: [UNRECOGNIZED DRUG - OTHER] IV SCH ×13 (03:25)
[2018-05-17 07:10] VITALS: BP 122/67
[2018-05-17] MEDS: levoTHYROXINE 25mcg tablet PO SCH (07:39)
[2018-05-17] MEDS: citalopram 20mg tablet PO SCH (07:39)
[2018-05-17] MEDS: aspirin/acetaminophen/caffeine tablet PO SCH ×2 (07:39→22:36)
[2018-05-17] MEDS: pantoprazole 40 MG vial IV SCH (07:41)
[2018-05-17] MEDS: methylnaltrexone br 12mg/0.6ml inj***SubQ only SQ SCH (07:49)
[2018-05-17] MEDS: metroNIDAZOLE-Flagyl 500mg/NS 100 ML IV SCH (07:50)
[2018-05-17] MEDS: heparin, porcine 5000 units/ml vial SQ SCH ×2 (08:00→22:37)
[2018-05-17] MEDS: lactose-reduced food (Ensure Enlive) - 237ml bottle PO SCH ×3 (08:00→18:02)
[2018-05-17] MEDS: K and/or MAG REPLACEMENT MC SCH (08:00)
[2018-05-17] MEDS: cefepime 2g/NS 100ml ADVANTAGE 100 ML IV SCH (09:25)
[2018-05-17 09:40] LABS: BASOPHILS % (AUTO) 0.1 % (0-1); EOSINOPHILS # (AUTO) 0.3 X10'3 (0-0.9); EOSINOPHILS % (AUTO) 2.8 % (0-6); HEMATOCRIT 28.7 % (35.0-45.0); HEMOGLOBIN 9.5 g/dl (12.0-16.0); LYMPHOCYTES # (AUTO) 1.6 X10'3 (1.1-4.8); LYMPHOCYTES % (AUTO) 12.8 % (21-51); MEAN CORPUSCULAR HEMOGLOBIN 29.3 PG (27.0-31.0); MEAN CORPUSCULAR HGB CONC 33.1 % (33.0-36.5); MEAN CORPUSCULAR VOLUME 88.4 FL (78-98); MEAN PLATELET VOLUME 7.8 FL (7.4-10.4); MONOCYTES # (AUTO) 1.9 X10'3 (0-0.9); MONOCYTES % (AUTO) 15.8 % (2-12); NEUTROPHILS # (AUTO) 8.4 X10'3 (1.8-7.7); NEUTROPHILS % (AUTO) 68.5 % (42-75); PLATELET COUNT 403 X10'3 (140-440); RED BLOOD COUNT 3.25 X10'6 (4.20-5.60); RED CELL DISTRIBUTION WIDTH 15.4 % (11.5-14.5); WHITE BLOOD COUNT 12.3 X10'3 (4.5-11.0)
[2018-05-17 09:48] LABS: ALANINE AMINOTRANSFERASE 21 U/L (12-78); ALBUMIN 2.1 G/DL (3.4-5.0); ALBUMIN/GLOBULIN RATIO 0.5 (1.1-1.5); ALKALINE PHOSPHATASE 86 IU/L (46-116); ANION GAP 5 (8-16); ASPARTATE AMINO TRANSFERASE 22 U/L (10-37); BILIRUBIN,TOTAL 0.5 MG/DL (0.1-1.0); BLOOD UREA NITROGEN 14 MG/DL (7-18); BUN/CREATININE RATIO 20.9 (6.6-38.0); CALCIUM 8.2 MG/DL (8.5-10.1); CHLORIDE 100 MMOL/L (99-107); CREATININE 0.67 MG/DL (0.40-0.90); GLUCOSE 135 MG/DL (70-104); POTASSIUM 4.1 MMOL/L (3.5-5.1); SODIUM 136 MMOL/L (135-145); TOTAL CARBON DIOXIDE 30.9 MMOL/L (24-32); TOTAL PROTEIN 6.1 G/DL (6.4-8.2); eGFR 87 ML/MIN
[2018-05-17] MEDS ORDERED: polyethylene glycol 3350 17gm powd pack PO PRN (10:00)
[2018-05-17 11:00] VITALS: BP 121/74
[2018-05-17] MEDS ORDERED: CADD PCA waste documentation MC SCH (14:20)
[2018-05-17 15:00] VITALS: BP 145/77
[2018-05-17] MEDS: metroNIDAZOLE 500mg tablet PO SCH (16:26)
[2018-05-17 19:00] VITALS: BP 103/61
[2018-05-17] MEDS: lactobacillus rhamnosus 10,000 MMU CELLS/CAPSULE PO SCH (22:36)
[2018-05-17 23:00] VITALS: BP 97/59
[2018-05-18] MEDS: morphine/NS 5 mg/ml CADD 50 ML IV SCH ×6 (01:00→10:54)
[2018-05-18] MEDS: metroNIDAZOLE 500mg tablet PO SCH ×3 (01:21→16:47)
[2018-05-18] MEDS: metoclopramide 5 mg/ml inj IV SCH ×4 (01:21→21:40)
[2018-05-18 03:00] VITALS: BP 118/73
[2018-05-18 05:03] LABS: BASOPHILS % (AUTO) 0.2 % (0-1); EOSINOPHILS # (AUTO) 0.4 X10'3 (0-0.9); EOSINOPHILS % (AUTO) 3.6 % (0-6); HEMATOCRIT 27.1 % (35.0-45.0); HEMOGLOBIN 8.9 g/dl (12.0-16.0); LYMPHOCYTES # (AUTO) 1.1 X10'3 (1.1-4.8); LYMPHOCYTES % (AUTO) 10.2 % (21-51); MEAN CORPUSCULAR HEMOGLOBIN 29.3 PG (27.0-31.0); MEAN CORPUSCULAR HGB CONC 32.9 % (33.0-36.5); MEAN CORPUSCULAR VOLUME 88.8 FL (78-98); MEAN PLATELET VOLUME 7.6 FL (7.4-10.4); MONOCYTES # (AUTO) 1.8 X10'3 (0-0.9); MONOCYTES % (AUTO) 15.8 % (2-12); NEUTROPHILS # (AUTO) 7.9 X10'3 (1.8-7.7); NEUTROPHILS % (AUTO) 70.2 % (42-75); PLATELET COUNT 426 X10'3 (140-440); RED BLOOD COUNT 3.05 X10'6 (4.20-5.60); RED CELL DISTRIBUTION WIDTH 15.4 % (11.5-14.5); WHITE BLOOD COUNT 11.3 X10'3 (4.5-11.0)
[2018-05-18 05:23] LABS: ALANINE AMINOTRANSFERASE 20 U/L (12-78); ALBUMIN 2.1 G/DL (3.4-5.0); ALBUMIN/GLOBULIN RATIO 0.6 (1.1-1.5); ALKALINE PHOSPHATASE 87 IU/L (46-116); ANION GAP 5 (8-16); ASPARTATE AMINO TRANSFERASE 19 U/L (10-37); BILIRUBIN,TOTAL 0.4 MG/DL (0.1-1.0); BLOOD UREA NITROGEN 10 MG/DL (7-18); BUN/CREATININE RATIO 15.2 (6.6-38.0); CALCIUM 8.3 MG/DL (8.5-10.1); CHLORIDE 104 MMOL/L (99-107); CREATININE 0.66 MG/DL (0.40-0.90); GLUCOSE 124 MG/DL (70-104); SODIUM 141 MMOL/L (135-145); TOTAL CARBON DIOXIDE 31.8 MMOL/L (24-32); TOTAL PROTEIN 5.8 G/DL (6.4-8.2); eGFR 88 ML/MIN
[2018-05-18 07:01] VITALS: BP 131/68
[2018-05-18] MEDS: levoTHYROXINE 25mcg tablet PO SCH (08:00)
[2018-05-18] MEDS: lactose-reduced food (Ensure Enlive) - 237ml bottle PO SCH ×3 (08:00→17:51)
[2018-05-18] MEDS: K and/or MAG REPLACEMENT MC SCH (08:00)
[2018-05-18] MEDS: aspirin/acetaminophen/caffeine tablet PO SCH ×2 (08:00→20:00)
[2018-05-18] MEDS: normal saline 1000ml 1,000 ML IV SCH (09:30)
[2018-05-18] MEDS: cefepime 2g/NS 100ml ADVANTAGE 100 ML IV SCH (09:35)
[2018-05-18] MEDS: heparin, porcine 5000 units/ml vial SQ SCH ×2 (09:36→21:40)
[2018-05-18] MEDS: lactobacillus rhamnosus 10,000 MMU CELLS/CAPSULE PO SCH ×2 (09:36→21:40)
[2018-05-18] MEDS: pantoprazole 40 MG vial IV SCH (09:36)
[2018-05-18] MEDS: citalopram 20mg tablet PO SCH (09:37)
[2018-05-18 11:00] VITALS: BP 102/67
[2018-05-18] MEDS: HYDROmorphone 2mg tablet PO PRN (13:42)
[2018-05-18 15:00] VITALS: BP 116/63
[2018-05-18] MEDS: ondansetron/PF 4mg/2ml inj IV PRN (17:10)
[2018-05-18 19:00] VITALS: BP 123/71
[2018-05-18 23:00] VITALS: BP 97/59
[2018-05-19] MEDS: metroNIDAZOLE 500mg tablet PO SCH ×2 (00:41→07:42)
[2018-05-19] MEDS: metoclopramide 5 mg/ml inj IV SCH ×4 (02:53→14:00)
[2018-05-19 03:00] VITALS: BP 103/68
[2018-05-19 06:31] LABS: BASOPHILS % (AUTO) 0.2 % (0-1); EOSINOPHILS # (AUTO) 0.4 X10'3 (0-0.9); EOSINOPHILS % (AUTO) 2.9 % (0-6); HEMATOCRIT 27.8 % (35.0-45.0); HEMOGLOBIN 8.9 g/dl (12.0-16.0); LYMPHOCYTES # (AUTO) 1.3 X10'3 (1.1-4.8); LYMPHOCYTES % (AUTO) 10.4 % (21-51); MEAN CORPUSCULAR HEMOGLOBIN 28.7 PG (27.0-31.0); MEAN CORPUSCULAR HGB CONC 32.2 % (33.0-36.5); MEAN CORPUSCULAR VOLUME 89.2 FL (78-98); MEAN PLATELET VOLUME 7.9 FL (7.4-10.4); MONOCYTES # (AUTO) 1.6 X10'3 (0-0.9); MONOCYTES % (AUTO) 12.8 % (2-12); NEUTROPHILS % (AUTO) 73.7 % (42-75); PLATELET COUNT 476 X10'3 (140-440); RED BLOOD COUNT 3.12 X10'6 (4.20-5.60); RED CELL DISTRIBUTION WIDTH 15.9 % (11.5-14.5); WHITE BLOOD COUNT 12.2 X10'3 (4.5-11.0)
[2018-05-19 06:52] LABS: ALANINE AMINOTRANSFERASE 18 U/L (12-78); ALBUMIN 2.1 G/DL (3.4-5.0); ALBUMIN/GLOBULIN RATIO 0.5 (1.1-1.5); ALKALINE PHOSPHATASE 87 IU/L (46-116); ANION GAP 6 (8-16); ASPARTATE AMINO TRANSFERASE 17 U/L (10-37); BILIRUBIN,TOTAL 0.3 MG/DL (0.1-1.0); BLOOD UREA NITROGEN 10 MG/DL (7-18); BUN/CREATININE RATIO 14.1 (6.6-38.0); CALCIUM 8.3 MG/DL (8.5-10.1); CHLORIDE 103 MMOL/L (99-107); CREATININE 0.71 MG/DL (0.40-0.90); GLUCOSE 114 MG/DL (70-104); SODIUM 140 MMOL/L (135-145); TOTAL CARBON DIOXIDE 30.9 MMOL/L (24-32); TOTAL PROTEIN 6.1 G/DL (6.4-8.2); eGFR 81 ML/MIN
[2018-05-19 07:13] VITALS: BP 95/54
[2018-05-19] MEDS: cefepime 2g/NS 100ml ADVANTAGE 100 ML IV SCH (07:37)
[2018-05-19] MEDS: heparin, porcine 5000 units/ml vial SQ SCH (07:38)
[2018-05-19] MEDS: pantoprazole 40 MG vial IV SCH (07:38)
[2018-05-19] MEDS: methylnaltrexone br 12mg/0.6ml inj***SubQ only SQ SCH (07:39)
[2018-05-19] MEDS: levoTHYROXINE 25mcg tablet PO SCH (07:39)
[2018-05-19] MEDS: citalopram 20mg tablet PO SCH (07:39)
[2018-05-19] MEDS: lactobacillus rhamnosus 10,000 MMU CELLS/CAPSULE PO SCH (07:39)
[2018-05-19] MEDS: lactose-reduced food (Ensure Enlive) - 237ml bottle PO SCH ×2 (08:00→13:00)
[2018-05-19] MEDS: aspirin/acetaminophen/caffeine tablet PO SCH (08:00)
[2018-05-19] MEDS: K and/or MAG REPLACEMENT MC SCH (08:00)
[2018-05-19] MEDS: HYDROmorphone 2mg tablet PO PRN (10:06)
[2018-05-19 11:38] VITALS: BP 99/53
[2018-05-19] MEDS ORDERED: levoFLOXACIN 750MG TABLET PO SCH (11:45)
[2018-05-19] MEDS ORDERED: LEVO750T46 PO (13:33)
[2018-05-19] MEDS ORDERED: METR500T4 PO (13:33)
[2018-05-19] MEDS ORDERED: metroNIDAZOLE-Flagyl 500mg/NS 100 ML IV SCH (16:00)
[2018-05-20] MEDS ORDERED: pantoprazole 40mg Tablet.DR PO SCH (07:30)
== END 2018-05-19 14:30 | disposition home or self-care (01) | DRG 853 ==
LOC: ER 11:25 → ED HOLD 15:05 → SUR 3N 16:23 → PACU 05-10 11:29 → CICU 2S 05-10 15:55 → PCU 3S 05-15 16:54 → UNDODISIN 05-17 15:50
PROVIDERS: ADMIT Family Medicine; ATTEND Surgery
PROC: 0D1N0Z4 Bypass Sigmoid Colon to Cutaneous, Open Approach (ICD-10-PCS; 2018-05-10)
PROC: 0DJD4ZZ Inspection of Lower Intestinal Tract, Percutaneous Endoscopic Approach (ICD-10-PCS; 2018-05-10)
PROC: 0DBN0ZZ Excision of Sigmoid Colon, Open Approach (ICD-10-PCS; principal; 2018-05-10 12:26)
PROC: 0D9670Z Drainage of Stomach with Drainage Device, Via Natural or Artificial Opening (ICD-10-PCS; 2018-05-12)
DX: A41.9 Sepsis, unspecified organism (principal); J96.00 Acute respiratory failure, unspecified whether with hypoxia or hypercapnia; K65.9 Peritonitis, unspecified; K57.20 Diverticulitis of large intestine with perforation and abscess without bleeding; M19.90 Unspecified osteoarthritis, unspecified site; Z96.611 Presence of right artificial shoulder joint; Z96.651 Presence of right artificial knee joint; I95.9 Hypotension, unspecified; E03.9 Hypothyroidism, unspecified; E66.01 Morbid (severe) obesity due to excess calories; N32.89 Other specified disorders of bladder; G47.30 Sleep apnea, unspecified; E78.00 Pure hypercholesterolemia, unspecified; I10 Essential (primary) hypertension; N73.6 Female pelvic peritoneal adhesions (postinfective); Z53.31 Laparoscopic surgical procedure converted to open procedure; Z88.5 Allergy status to narcotic agent; Z88.8 Allergy status to other drugs, medicaments and biological substances; Z79.899 Other long term (current) drug therapy; Z87.891 Personal history of nicotine dependence; Z68.39 Body mass index [BMI] 39.0-39.9, adult
CPT/HCPCS: 36415; 36600; 70450; 70486; 71045; 72100; 74018; 74176; 76937; 80053; 81001; 82803; 82948; 83605; 83735; 84100; 84132; 84134; 84443; 84478; 85018; 85025; 85610; 86885; 86900; 86901; 87040; 87070; 88307; 93005; 93971; 94002; 94003; 94640; 94760; 96361; 96374; 96375; 97110; 97116; 97161; 97530; 97535; 99285; A4421; A6251; A7000; C1751; C1758; C9113; G0378; J0171; J0360; J0610; J0690; J0692; J0885; J1170; J1200; J1644; J1940; J1956; J2001; J2270; J2405; J2704; J2765; J3010; J3475; J3480; J3490; J7030; J7042; J7120; J7131; Q0163

== ENCOUNTER 2018-06-30 18:29 | Emergency (ER) | payer MEDICARE, OTHER ==
[~2018-06-30] VITALS: Ht 165.1 cm; Wt 100.0 kg
[~2018-06-30 18:29] MED LIST changes: -CARI-1 PO; +LEVO750T46 PO; +METR-211 PO; -MONT10TA24 PO; +SYN0.088T PO; -TRAM50TA2 PO; +VIT1CAPS46 PO
[2018-06-30 19:32] LABS: BASOPHILS % (AUTO) 0.4 % (0-1); EOSINOPHILS # (AUTO) 0.5 X10'3 (0-0.9); EOSINOPHILS % (AUTO) 4.5 % (0-6); HEMATOCRIT 31.3 % (35.0-45.0); HEMOGLOBIN 10.3 g/dl (12.0-16.0); LYMPHOCYTES # (AUTO) 1.8 X10'3 (1.1-4.8); LYMPHOCYTES % (AUTO) 16.6 % (21-51); MEAN CORPUSCULAR HEMOGLOBIN 27.9 PG (27.0-31.0); MEAN CORPUSCULAR HGB CONC 32.7 % (33.0-36.5); MEAN CORPUSCULAR VOLUME 85.3 FL (78-98); MEAN PLATELET VOLUME 7.5 FL (7.4-10.4); MONOCYTES # (AUTO) 1.2 X10'3 (0-0.9); MONOCYTES % (AUTO) 10.9 % (2-12); NEUTROPHILS # (AUTO) 7.2 X10'3 (1.8-7.7); NEUTROPHILS % (AUTO) 67.6 % (42-75); PLATELET COUNT 740 X10'3 (140-440); RED BLOOD COUNT 3.67 X10'6 (4.20-5.60); RED CELL DISTRIBUTION WIDTH 15.7 % (11.5-14.5); WHITE BLOOD COUNT 10.7 X10'3 (4.5-11.0)
[2018-06-30 19:37] LABS: PARTIAL THROMBOPLASTIN TIME 26 SECONDS (22-32); PROTHROMBIN TIME 10.4 SECONDS (9.0-12.0)
[2018-06-30 19:41] LABS: ALANINE AMINOTRANSFERASE 30 U/L (12-78); ALBUMIN 2.9 G/DL (3.4-5.0); ALBUMIN/GLOBULIN RATIO 0.6 (1.1-1.5); ALKALINE PHOSPHATASE 110 IU/L (46-116); ANION GAP 14 (8-16); ASPARTATE AMINO TRANSFERASE 26 U/L (10-37); BILIRUBIN,TOTAL 0.2 MG/DL (0.1-1.0); BLOOD UREA NITROGEN 14 MG/DL (7-18); BUN/CREATININE RATIO 21.9 (6.6-38.0); CHLORIDE 100 MMOL/L (99-107); CREATININE 0.64 MG/DL (0.40-0.90); GLUCOSE 105 MG/DL (70-104); POTASSIUM 3.6 MMOL/L (3.5-5.1); SODIUM 138 MMOL/L (135-145); eGFR > 90 ML/MIN
[2018-06-30] MEDS ORDERED: iohexol 300mg/ml 100ml inj. ONE (21:26)
[2018-06-30] MEDS ORDERED: diatrozoate meglu/diatrozoate sod (37% iodine) 120ML oral solution ONE (21:27)
[2018-06-30 23:05] VITALS: BP 117/74
== END 2018-06-30 23:48 | disposition home or self-care (01) ==
LOC: ER 18:30
DX: K94.09 Other complications of colostomy (principal); L03.311 Cellulitis of abdominal wall; R11.10 Vomiting, unspecified; R19.7 Diarrhea, unspecified; I10 Essential (primary) hypertension; E78.00 Pure hypercholesterolemia, unspecified; Z88.5 Allergy status to narcotic agent; Z88.8 Allergy status to other drugs, medicaments and biological substances; Z79.899 Other long term (current) drug therapy; Z87.891 Personal history of nicotine dependence; Y83.3 Surgical operation with formation of external stoma as the cause of abnormal reaction of the patient, or of later complication, without mention of misadventure at the time of the procedure; Y92.89 Other specified places as the place of occurrence of the external cause
CPT/HCPCS: 36415; 71045; 74176; 80053; 83605; 84145; 85025; 85610; 85730; 87040; 87070; 87077; 87102; 87186; 99284; Q9963; Q9967

== ENCOUNTER 2018-09-06 12:54 | Day surgery (SDC) | payer MEDICARE, OTHER ==
[~2018-09-06] VITALS: Ht 165.1 cm; Wt 96.5 kg
[2018-09-06] VITALS (7 sets, daily range): BP systolic 111–139; BP diastolic 38–89
[~2018-09-06 12:54] MED LIST changes: +DOCUMENT DATE & TIME OF BETA-BLOCKER PO ONE; +LACT1CAP67 PO; +LEVO25TA2 PO; -LEVO750T46 PO; -METO-395 PO; -METR-211 PO; -SYN0.088T PO; +cefazolin/dext.iso 2gm/50ml 50 ML IV ONE; +famotidine 20mg tablet PO ONE; +ringers solution, lacted 1,000 ML IV SCH
[2018-09-06 13:31] LABS: ISTAT CREATININE 0.7 mg/dL (0.6-1.1); ISTAT HGB 13.3 g/dl (12.0-16.0); ISTAT IONIZED CALCIUM 1.21 mmol/L (1.03-1.32); POC BUN/CREATININE RATIO 14.3 (6.6-38.0)
[2018-09-06] MEDS ORDERED: ceFAZolin 1000mg inj ONE (13:37)
[2018-09-06] MEDS ORDERED: bacitracin 15gm ointment TP ONE (13:37)
[2018-09-06 13:44] LABS: BASOPHILS # (AUTO) 0.1 X10'3 (0-0.2); EOSINOPHILS # (AUTO) 0.4 X10'3 (0-0.9); EOSINOPHILS % (AUTO) 4.7 % (0-6); LYMPHOCYTES # (AUTO) 1.9 X10'3 (1.1-4.8); LYMPHOCYTES % (AUTO) 24.2 % (21-51); MEAN CORPUSCULAR HEMOGLOBIN 26.6 PG (27.0-31.0); MEAN CORPUSCULAR HGB CONC 33.2 g/dL (33.0-36.5); MEAN CORPUSCULAR VOLUME 80.1 FL (78-98); MEAN PLATELET VOLUME 8.5 FL (7.4-10.4); NEUTROPHILS # (AUTO) 4.6 X10'3 (1.8-7.7); NEUTROPHILS % (AUTO) 58.1 % (42-75); PRE OP HEMATOCRIT 35.7 % (35.0-45.0); PRE OP HEMOGLOBIN 11.8 g/dL (12.0-16.0); PRE OP PLATELET COUNT 357 X10'3 (140-440); RED BLOOD COUNT 4.46 X10'6 (4.20-5.60); RED CELL DISTRIBUTION WIDTH 16.5 % (11.5-14.5)
[2018-09-06 13:51] LABS: ALBUMIN 3.4 G/DL (3.4-5.0); ALBUMIN/GLOBULIN RATIO 0.8 (1.1-1.5); ALKALINE PHOSPHATASE 90 IU/L (46-116); BLOOD UREA NITROGEN 11 MG/DL (7-18); BUN/CREATININE RATIO 14.3 (6.6-38.0); CALCIUM 8.7 MG/DL (8.5-10.1); CHLORIDE 104 MMOL/L (99-107); CREATININE 0.77 MG/DL (0.40-0.90); PRE OP ALT 25 U/L (30-65); PRE OP ANION GAP 9 (8-16); PRE OP AST 30 U/L (10-37); PRE OP BILIRUB, TOTAL 0.2 MG/DL (0.0-1.0); PRE OP GLUCOSE 87 MG/DL (70-104); PRE OP POTASSIUM 3.9 MMOL/L (3.4-5.1); PRE OP SODIUM 140 MMOL/L (135-145); TOTAL CARBON DIOXIDE 26.8 MMOL/L (24-32); TOTAL PROTEIN 7.7 G/DL (6.4-8.2); eGFR 74 ML/MIN
[2018-09-06] MEDS ORDERED: fentaNYL/PF 50MCG/1 ML 2ML syringe ONE (15:15)
[2018-09-06] MEDS ORDERED: propofol inj 20 ML IV ONE ×3 (15:32→15:55)
[2018-09-06] MEDS ORDERED: LIDOcaine 2% (20mg/ml) 5ml vial ONE ×2 (15:54)
[2018-09-06] MEDS ORDERED: ondansetron/PF 4mg/2ml inj ONE (15:55)
[2018-09-06] MEDS ORDERED: ePHEDrine 50MG/ML INJ. ONE (15:55)
[2018-09-06] MEDS ORDERED: ringers solution, lacted 1,000 ML IV SCH (16:02)
[2018-09-06] MEDS ORDERED: HYDROmorphone inj. 0.5 MG/0.5 ML DISP.SYRIN IV PRN (16:05)
[2018-09-06] MEDS ORDERED: ondansetron/PF 4mg/2ml inj IV PRN (16:05)
[2018-09-06] MEDS ORDERED: morphine 4 MG/ML inj SYRINge IV PRN (16:05)
--- NOTE | 2018-09-06 16:05 | NUR ---
Received from OR via BED, accompanied by Anesthesiologist DR NESS-- and report given by Anesthesiolgist. PATIENT A&OX4, DENIES PAIN, V/S WNL, NEUROVASCULAR CHECKS INTACT, 20G PIV RUE, SCD ON, ABDOMEN DRESSING CDI
--- NOTE | 2018-09-06 16:40 | NUR ---
PATIENT A&OX4, DENIES PAIN, V/S WNL, NEUROVASCULAR CHECKS INTACT, 20G PIV RUE D/C, SCD OFF, ABDOMEN DRESSING CDI. I HAVE REVIEWED D/C INSTRUCTIONS WITH PATIENT AND FAMILY AND THEY HAVE VERBALIZED UNDERSTANDING. PATIENT D/C HOME WITH ALL BELONGINGS AND FAMILY GAVE TRANSPORT HOME.
== END 2018-09-06 16:40 | disposition home or self-care (01) ==
LOC: PAS 12:54
PROVIDERS: ATTEND Surgery
PROC: 0HB7XZZ Excision of Abdomen Skin, External Approach (ICD-10-PCS; principal; 2018-09-06 15:06)
DX: T81.89XA Other complications of procedures, not elsewhere classified, initial encounter (principal); T81 Complications of procedures, not elsewhere classified; Y92.89 Other specified places as the place of occurrence of the external cause; Z88.8 Allergy status to other drugs, medicaments and biological substances; Z87.891 Personal history of nicotine dependence; Z96.651 Presence of right artificial knee joint; Z98.890 Other specified postprocedural states; T81.42XA Infection following a procedure, deep incisional surgical site, initial encounter; L02.211 Cutaneous abscess of abdominal wall; Y83.3 Surgical operation with formation of external stoma as the cause of abnormal reaction of the patient, or of later complication, without mention of misadventure at the time of the procedure; Y92.238 Other place in hospital as the place of occurrence of the external cause
CPT/HCPCS: 10121; 36415; 80047; 85025; 87070; 87075; 87076; 87077; 87102; 87185; 87186; A6253; J0690; J2001; J2405; J2704; J3010; J7120; 80053; A4620; A6446; A7000

== ENCOUNTER 2019-06-13 07:28 | Inpatient (IN) | payer MEDICARE, OTHER ==
[2019-06-11 12:06] LABS: BASOPHILS # (AUTO) 0.1 X10'3 (0-0.2); BASOPHILS % (AUTO) 0.9 % (0-1); EOSINOPHILS # (AUTO) 0.2 X10'3 (0-0.9); EOSINOPHILS % (AUTO) 2.3 % (0-6); LYMPHOCYTES # (AUTO) 1.8 X10'3 (1.1-4.8); LYMPHOCYTES % (AUTO) 24.7 % (21-51); MEAN CORPUSCULAR HEMOGLOBIN 28.3 PG (27.0-31.0); MEAN CORPUSCULAR HGB CONC 33.2 g/dL (33.0-36.5); MEAN CORPUSCULAR VOLUME 85.4 FL (78-98); MEAN PLATELET VOLUME 8.8 FL (7.4-10.4); MONOCYTES # (AUTO) 0.9 X10'3 (0-0.9); MONOCYTES % (AUTO) 11.9 % (2-12); NEUTROPHILS # (AUTO) 4.4 X10'3 (1.8-7.7); NEUTROPHILS % (AUTO) 60.2 % (42-75); PRE OP HEMATOCRIT 40.1 % (35.0-45.0); PRE OP HEMOGLOBIN 13.3 g/dL (12.0-16.0); PRE OP PLATELET COUNT 272 X10'3 (140-440); RED BLOOD COUNT 4.69 X10'6 (4.20-5.60); RED CELL DISTRIBUTION WIDTH 15.5 % (11.5-14.5)
[2019-06-11 12:31] LABS: ALBUMIN 3.2 G/DL (3.4-5.0); ALBUMIN/GLOBULIN RATIO 0.8 (1.1-1.5); ALKALINE PHOSPHATASE 92 IU/L (46-116); BLOOD UREA NITROGEN 15 MG/DL (7-18); BUN/CREATININE RATIO 19.2 (6.6-38.0); CALCIUM 8.6 MG/DL (8.5-10.1); CHLORIDE 106 MMOL/L (99-107); CREATININE 0.78 MG/DL (0.40-0.90); PRE OP ALT 14 U/L (30-65); PRE OP ANION GAP 9 (8-16); PRE OP AST 16 U/L (10-37); PRE OP BILIRUB, TOTAL 0.4 MG/DL (0.0-1.0); PRE OP GLUCOSE 109 MG/DL (70-104); PRE OP SODIUM 142 MMOL/L (135-145); TOTAL CARBON DIOXIDE 27.3 MMOL/L (24-32); eGFR 73 ML/MIN
[~2019-06-13] VITALS: Ht 165.1 cm; Wt 99.8 kg
[2019-06-13] VITALS (20 sets, daily range): BP systolic 94–149; BP diastolic 54–88
[~2019-06-13 07:28] MED LIST changes: +BETA1TAB20 PO; +BUPIVAcaine/PF 2.5 mg/ml (0.25%) 30ml vial ONE; +CELE-193 PO; -LACT1CAP67 PO; +MONT10TA24 PO; -VIT1CAPS46 PO; +ceFAZolin 1000mg inj ONE; +cefazolin/dext.iso 2gm/100ml 100 ML IV ONE; -cefazolin/dext.iso 2gm/50ml 50 ML IV ONE; -ringers solution, lacted 1,000 ML IV SCH
[2019-06-13] MEDS ORDERED: LIDOcaine 1% (10mg/ml) 2ml vial ONE (08:00)
[2019-06-13] MEDS: ringers solution, lacted 1,000 ML IV SCH ×3 (08:09→22:11)
[2019-06-13] MEDS ORDERED: BUPIVACAINE liposomal/PF 13.3 MG/ML vial IM ONE (09:47)
[2019-06-13] MEDS ORDERED: dexmedetomidine 200mcg/2ml inj. IV ONE (09:47)
[2019-06-13] MEDS ORDERED: BUPIVAcaine/PF 2.5mg/ml (0.25%) 10ml vial ONE (09:47)
[2019-06-13] MEDS ORDERED: fentaNYL /PF 50mcg/ml 5ml ampule ONE (09:50)
[2019-06-13] MEDS ORDERED: rocuronium 10mg/ml inj IV ONE ×2 (09:54→11:40)
[2019-06-13] MEDS ORDERED: propofol inj 20 ML IV ONE ×5 (09:54→13:08)
[2019-06-13] MEDS ORDERED: LIDOcaine 2% (20mg/ml) 5ml vial ONE ×2 (09:59→13:08)
[2019-06-13] MEDS ORDERED: dexamethasone sod phosphate 4mg/ml inj. ONE (10:25)
[2019-06-13] MEDS ORDERED: ondansetron/PF 4mg/2ml inj ONE (10:25)
[2019-06-13] MEDS ORDERED: neostigmine methylsulfate 1 MG/ML 10ml vial ONE (10:26)
[2019-06-13] MEDS ORDERED: glycopyrrolate 0.2mg/ml inj ONE (10:26)
[2019-06-13] MEDS ORDERED: ringers solution, lacted 1,000 ML IV SCH (10:57)
[2019-06-13] MEDS ORDERED: ondansetron/PF 4mg/2ml inj IV PRN (11:00)
[2019-06-13] MEDS ORDERED: hydrALAZINE 20mg/ml inj. IV PRN (11:00)
[2019-06-13] MEDS ORDERED: morphine 4 MG/ML inj SYRINge IV PRN ×2 (11:00)
[2019-06-13] MEDS ORDERED: fentaNYL/PF 50MCG/1 ML 2ML syringe IV PRN ×2 (11:00)
[2019-06-13] MEDS ORDERED: labetalol 20mg/4ml (5mg/ml) syringe IV PRN (11:00)
[2019-06-13] MEDS ORDERED: labetalol 20mg/4ml (5mg/ml) syringe IV ONE (12:33)
[2019-06-13] MEDS ORDERED: morphine 10mg/ml inj. ONE (12:48)
--- NOTE | 2019-06-13 13:25 | NUR ---
Received from OR via BED , accompanied by Anesthesiologist DR LAMB and report given by Anesthesiolgist. PATIENT WAKING UP, DENIES PAIN, V/S WNL, NEUROVASCULAR CHECKS INTACT, 20G PIV RUE, SCD ON, LAP SIGHTS OF ABDOMEN CDI.
--- NOTE | 2019-06-13 14:45 | NUR ---
PATIENT SLEEPY BUT ORIENTED X4, STATES MODERATE PAIN BUT IS ALSO VERY SLEEPY AND QUICKLY FALLS ASLEEP WHEN NOT BEING ADDRESSED OR MOVED., V/S WNL, NEUROVASCULAR CHECKS INTACT, 20G PIV RUE, SCD ON, LAP SIGHTS OF ABDOMEN CDI. PATIENT TAKEN TO 348A WITH ALL BELONGINGS AND HOOKED UP TO MONITORS IN ROOM AND REPORT GIVEN TO RN WHO HAS TAKEN OVER PATIENT CARE.
--- NOTE | 2019-06-13 14:54 | NUR ---
Patient in room . I have received report from Rehan CANSECO and had the opportunity to ask questions and assume patient care.
[2019-06-13] MEDS: HYDROmorphone/NS 1 mg/ml CADD 50 ML IV SCH ×5 (15:39→23:00)
--- NOTE | 2019-06-13 16:00 | NUR ---
patient sleeping, dilaudud cadd set up following orders received from Dr Ram. patient instructed on use of it . Refused skin check as stated she was too painful. VSS. Clear lqd diet ordered can advance as tolerated according to bowel protocol. will coninue to monitor.
[2019-06-13] MEDS ORDERED: montelukast 10mg tablet PO PRN (16:55)
--- NOTE | 2019-06-13 18:19 | NUR ---
Problems reprioritized. Patient report given, questions answered & plan of care reviewed with tomasa CANSECO.
--- NOTE | 2019-06-13 18:35 | NUR ---
Patient in room MOE 348. I have received report from Patricia and had the opportunity to ask questions and assume patient care. Pt painful, enc to use cadd. pt refusing to turn for skin assessment, will attampt later vignesh pain under control Addendum: 06/13/19 at 1901 by Coleen Cornejo RN Amended: Links added.
--- NOTE | 2019-06-13 19:17 | NUR ---
pt repositioned with pillows, scd's on. enc c&db, pt states cannot do IS at this time, turn or move. using cadd, will reevaluate. Addendum: 06/13/19 at 1920 by Coleen Cornejo RN Amended: Links added.
[2019-06-13] MEDS ORDERED: ZINC PO SCH (21:00)
[2019-06-13] MEDS: citalopram 20mg tablet PO SCH (21:00)
[2019-06-13] MEDS ORDERED: COPPER PO SCH (21:00)
[2019-06-13] MEDS ORDERED: VIT C PO SCH (21:00)
[2019-06-13] MEDS: vitamin D (cholecalciferol) 1,000 unit tablet PO SCH (21:00)
[2019-06-13] MEDS ORDERED: VIT A PO SCH (21:00)
[2019-06-13] MEDS: cyanocobalamin 500mcg tablet PO SCH (21:00)
[2019-06-13] MEDS ORDERED: VIT E PO SCH (21:00)
[2019-06-13] MEDS ORDERED: dextrose 5% water 500ml 500 ML IV ONE (21:55)
--- NOTE | 2019-06-13 22:00 | NUR ---
PT STILL REFUSING TO GET OOB, TURN, C&DB. CALLED FOR TORODAL PT REQUESTED. Addendum: 06/13/19 at 2216 by Coleen Cornejo RN Amended: Links added.
[2019-06-13] MEDS ORDERED: normal saline 500ml IV soln 500 ML IV ONE (22:05)
[2019-06-13] MEDS: ketorolac tromethamine 15mg/ml inj. IV PRN (22:43)
[2019-06-14] VITALS: BP 127/71
--- NOTE | 2019-06-14 00:31 | NUR ---
pt dangled for several minutes, amb with x2 assist and fww. pt moved slowly, but steady. was able to amb @ 25 feet. became sl diaphoretic, states feeling very weak. back to bed. poc with pillows. sat 96 % on r/a. remains on cont pulse ox. 02 placed back on has pt sat has been low 90's while sleeping. Addendum: 06/14/19 at 0033 by Coleen Cornejo RN Amended: Links added.
[2019-06-14] MEDS: HYDROmorphone/NS 1 mg/ml CADD 50 ML IV SCH ×12 (01:00→23:00)
[2019-06-14] MEDS ORDERED: ketorolac tromethamine 15mg/ml inj. IV SCH (02:00)
--- NOTE | 2019-06-14 04:52 | NUR ---
labs drawn, pt states feeling better., lap sites cd&i. Addendum: 06/14/19 at 0453 by Coleen Cornejo RN Amended: Links added.
[2019-06-14 05:29] LABS: HEMATOCRIT 35.6 % (35.0-45.0); HEMOGLOBIN 11.7 g/dl (12.0-16.0); MEAN CORPUSCULAR HEMOGLOBIN 28.3 PG (27.0-31.0); MEAN CORPUSCULAR HGB CONC 32.9 g/dL (33.0-36.5); MEAN PLATELET VOLUME 9.1 FL (7.4-10.4); PLATELET COUNT 249 X10'3 (140-440); RED BLOOD COUNT 4.14 X10'6 (4.20-5.60); RED CELL DISTRIBUTION WIDTH 15.2 % (11.5-14.5); WHITE BLOOD COUNT 15.1 X10'3 (4.5-11.0)
[2019-06-14] MEDS: ketorolac tromethamine 15mg/ml inj. IV PRN (05:47)
--- NOTE | 2019-06-14 06:25 | NUR ---
Problems reprioritized. Patient report given, questions answered & plan of care reviewed with HARLEEN Gomez. Addendum: 06/14/19 at 0625 by Coleen Cornejo RN Amended: Links added.
--- NOTE | 2019-06-14 06:40 | NUR ---
Patient in room MOE 348. I have received report from Phoebe CANSECO and had the opportunity to ask questions and assume patient care.
[2019-06-14] MEDS: celeCOXIB 100mg capsule PO SCH (07:20)
[2019-06-14] MEDS: levoTHYROXINE 25mcg tablet PO SCH (07:20)
[2019-06-14] MEDS: metoprolol succinate 25mg (24-HOUR) SR. Tablet PO SCH (07:20)
[2019-06-14] MEDS: pantoprazole 40mg Tablet.DR PO SCH (07:20)
[2019-06-14] MEDS: atorvastatin 10mg tablet PO SCH (07:21)
[2019-06-14 07:24] VITALS: BP 114/60
[2019-06-14] MEDS: ringers solution, lacted 1,000 ML IV SCH ×2 (09:03→21:01)
[2019-06-14 11:00] VITALS: BP 128/69
--- NOTE | 2019-06-14 12:36 | NUR ---
patient seen by Dr Ram, all cares to continue no new orders.
[2019-06-14 18:00] VITALS: BP 119/53
--- NOTE | 2019-06-14 18:00 | NUR ---
patient able to ambulate x2, has not passed gas yet. Report given to Prudence RN
--- NOTE | 2019-06-14 18:32 | NUR ---
Patient in room MOE 348. I have received report from Patricia CANSECO and had the opportunity to ask questions and assume patient care. patient is resting and shows no sign of distress.
[2019-06-14] MEDS: citalopram 20mg tablet PO SCH (21:03)
[2019-06-14] MEDS: cyanocobalamin 500mcg tablet PO SCH (21:03)
[2019-06-14] MEDS: vitamin D (cholecalciferol) 1,000 unit tablet PO SCH (21:04)
[2019-06-15] VITALS: BP 123/74
[2019-06-15] MEDS: HYDROmorphone/NS 1 mg/ml CADD 50 ML IV SCH ×5 (01:00→09:00)
--- NOTE | 2019-06-15 06:23 | NUR ---
Problems reprioritized. Patient report given, questions answered & plan of care reviewed with Yeimy CANSECO. Patient is resting and shows no sign of distress.
--- NOTE | 2019-06-15 06:54 | NUR ---
Patient in room MOE 348. I have received report from MARIBEL CANSECO and had the opportunity to ask questions and assume patient care.
[2019-06-15] MEDS: pantoprazole 40mg Tablet.DR PO SCH (07:45)
[2019-06-15] MEDS: levoTHYROXINE 25mcg tablet PO SCH (07:45)
[2019-06-15] MEDS: atorvastatin 10mg tablet PO SCH (07:46)
[2019-06-15] MEDS: metoprolol succinate 25mg (24-HOUR) SR. Tablet PO SCH (07:47)
[2019-06-15] MEDS: celeCOXIB 100mg capsule PO SCH (07:48)
[2019-06-15] MEDS: ketorolac tromethamine 15mg/ml inj. IV PRN (08:32)
[2019-06-15] MEDS: ringers solution, lacted 1,000 ML IV SCH ×2 (08:33→23:48)
[2019-06-15 11:00] VITALS: BP 114/69
[2019-06-15] MEDS ORDERED: CADD PCA waste documentation MC PRN (12:35)
[2019-06-15] MEDS: ondansetron/PF 4mg/2ml inj IV PRN ×2 (13:22→13:46)
[2019-06-15] MEDS: HYDROcodone/acetaminophen 10/325mg tab PO PRN ×2 (13:57→22:16)
[2019-06-15 14:10] VITALS: BP 113/55
--- NOTE | 2019-06-15 15:05 | NUR ---
Patient in room MOE 348. I have received report from HARLEEN Gaffney and had the opportunity to ask questions and assume patient care.
[2019-06-15 18:00] VITALS: BP 121/74
--- NOTE | 2019-06-15 18:54 | NUR ---
Problems reprioritized. Patient report given, questions answered & plan of care reviewed with Rachael RN.
--- NOTE | 2019-06-15 18:57 | NUR ---
Per Dr Nair ok for patient to be discharged in am no need for him to see patient. Patient has pain medications at home already.
[2019-06-15] MEDS: vitamin D (cholecalciferol) 1,000 unit tablet PO SCH (20:37)
[2019-06-15] MEDS: cyanocobalamin 500mcg tablet PO SCH (20:37)
[2019-06-15] MEDS: citalopram 20mg tablet PO SCH (20:37)
[2019-06-15] MEDS ORDERED: metoprolol succinate 25mg (24-HOUR) SR. Tablet PO SCH (21:00)
[2019-06-16] VITALS: BP 96/59
[2019-06-16] MEDS: HYDROcodone/acetaminophen 10/325mg tab PO PRN ×2 (03:41→08:05)
--- NOTE | 2019-06-16 06:41 | NUR ---
Problems reprioritized. Patient report given, questions answered & plan of care reviewed with Malena Cano. Addendum: 06/16/19 at 0643 by Lindsey Berman RN Patient in room MOE 348. I have received report from MALENA Cano and had the opportunity to ask questions and assume patient care.
[2019-06-16 07:00] VITALS: BP 101/62
[2019-06-16] MEDS: celeCOXIB 100mg capsule PO SCH (08:04)
[2019-06-16] MEDS: levoTHYROXINE 25mcg tablet PO SCH (08:05)
[2019-06-16] MEDS: atorvastatin 10mg tablet PO SCH (08:05)
[2019-06-16] MEDS: pantoprazole 40mg Tablet.DR PO SCH (08:05)
--- NOTE | 2019-06-16 10:27 | NUR ---
Discussed with patient and spouse discharge teaching. Both verbalize understanding of teaching. IV Dc'd with no complications, cannula intact. x7 incision sites with glue covered CDI, band aids changed. Patient dc'd home with all personal belongings in wheelchair accompanied by x1 staff and spouse.
== END 2019-06-16 10:25 | disposition home or self-care (01) | DRG 337 ==
LOC: PAS 07:28 → SUR 3N 13:47 → OBSVTOIN 06-14 15:00
PROVIDERS: ADMIT Surgery; ATTEND Surgery
PROC: 0DNU4ZZ Release Omentum, Percutaneous Endoscopic Approach (ICD-10-PCS; 2019-06-13)
PROC: 0DN84ZZ Release Small Intestine, Percutaneous Endoscopic Approach (ICD-10-PCS; 2019-06-13)
PROC: 3E0T3BZ Introduction of Anesthetic Agent into Peripheral Nerves and Plexi, Percutaneous Approach (ICD-10-PCS; 2019-06-13)
PROC: 0WUF4JZ Supplement Abdominal Wall with Synthetic Substitute, Percutaneous Endoscopic Approach (ICD-10-PCS; principal; 2019-06-13 09:40)
DX: K43.2 Incisional hernia without obstruction or gangrene (principal); K66.0 Peritoneal adhesions (postprocedural) (postinfection); I10 Essential (primary) hypertension; K21.9 Gastro-esophageal reflux disease without esophagitis; E03.9 Hypothyroidism, unspecified; F32.9 Major depressive disorder, single episode, unspecified; G43.909 Migraine, unspecified, not intractable, without status migrainosus; Z96.619 Presence of unspecified artificial shoulder joint; G47.30 Sleep apnea, unspecified; Z96.659 Presence of unspecified artificial knee joint; Z87.891 Personal history of nicotine dependence; Z88.8 Allergy status to other drugs, medicaments and biological substances
CPT/HCPCS: 36415; 80053; 82948; 84443; 85025; 85027; 87081; 93005; A4215; A4618; A7000; C1758; C1781; C9290; G0378; J0690; J1100; J1170; J1885; J2001; J2270; J2405; J2704; J2710; J3010; J3490; J7040; J7120